=== PATIENT | female | born 1995 | race Caucasian/White ===

== ENCOUNTER 2017-03-16 15:26 | Emergency (ER) | payer OTHER ==
[~2017-03-16] VITALS: Ht 160 cm; Wt 54.5 kg
[~2017-03-16 15:26] MED LIST: DIPH-423 PO; MECL12.5 PO; ONDA8TAB6 PO; PROM25TA14 PO; ZOF4T PO
[2017-03-16] MEDS ORDERED: ketorolac trometh inj. 60 MG/2 ML VIAL IM ONE (17:20)
[2017-03-16] MEDS ORDERED: HYDR-3965 PO (17:37)
[2017-03-16] MEDS ORDERED: CYCL-1 PO (17:37)
[2017-03-16] MEDS ORDERED: IBUP-1985 PO (17:37)
[2017-03-16] MEDS ORDERED: diazepam 5mg tablet PO ONE (17:50)
[2017-03-16 18:08] VITALS: BP 133/70
[2017-03-22] MEDS ORDERED: ONDA4TAB9 SL (10:31)
== END 2017-03-16 18:12 | disposition home or self-care (01) ==
LOC: ER 15:28
DX: S16.1XXA Strain of muscle, fascia and tendon at neck level, initial encounter (principal); M54.5 Low back pain; Z88.8 Allergy status to other drugs, medicaments and biological substances; V89.2XXA Person injured in unspecified motor-vehicle accident, traffic, initial encounter; Y93.89 Activity, other specified; Y92.488 Other paved roadways as the place of occurrence of the external cause; Y99.8 Other external cause status
CPT/HCPCS: 71010; 99283; J1885; L0172